=== PATIENT | female | born 1965 | race Caucasian/White ===

== ENCOUNTER 2017-03-29 07:19 | Day surgery (SDC) | payer OTHER ==
[2017-03-24 16:22] LABS: BASOPHILS 0.7 %; BASOPHILS ABSOLUTE 0.06 10/3/uL (0.0-0.16); EOSINOPHILS ABSOLUTE 0.18 10/3/uL (0.0-0.53); IMMATURE GRANULOCYTES 0.1 %; IMMATURE GRANULOCYTES ABSOLUTE 0.01 10/3/uL (0.0-0.11); LYMPHOCYTES 32.9 %; LYMPHOCYTES ABSOLUTE 2.99 10/3/uL (0.67-4.30); MEAN CORPUSCULAR HEMOGLOB 30.7 pg (26.0-34.0); MEAN CORPUSCULAR VOLUME 90.1 fL (80-100); MEAN PLATELET VOLUME 9.3 fL (9.2-13.0); MONOCYTES 4.4 %; NEUTROPHILS 59.9 %; NEUTROPHILS ABSOLUTE 5.44 10/3/uL (2.02-8.40); PLATELET COUNT 267 10/3/uL (150-400); RBC DISTRIBUTION WIDTH 13.5 % (12.0-16.0); WHITE BLOOD CELLS 9.1 10/3/uL (4.5-10.5)
[2017-03-24 16:24] LABS: HEMATOCRIT 43.8 % (36.0-48.0); HEMOGLOBIN 14.9 g/dL (12.0-16.0); MANUAL DIFF NO %; RED CELL COUNT 4.86 10/6/uL (4.0-5.6)
[2017-03-24 16:34] LABS: A/G RATIO 0.9 (0.7-1.9); ALBUMIN 3.6 G/DL (3.5-5.0); ALKALINE PHOSPHATASE 102 U/L (45-117); BUN (BLOOD UREA NITROGEN) 6 MG/DL (6-23); CALCIUM, SERUM 9.2 MG/DL (8.5-10.4); CHLORIDE, SERUM 112 MMOL/L (96-112); CO2 (CARBON DIOXIDE) 23 MMOL/L (24-34); CREATININE 0.94 MG/DL (0.55-1.02); GFR AFRICAN AMERICAN 81 ML/MIN (>=60); GFR NON AFRICAN AMERICAN 70 ML/MIN (>=60); GLUCOSE, SERUM 97 MG/DL (60-99); POTASSIUM, SERUM 3.9 MMOL/L (3.5-5.3); SGOT(AST) 17 U/L (5-40); SGPT(ALT) 24 U/L (5-65); SODIUM, SERUM 145 MMOL/L (135-148); TOTAL BILIRUBIN 0.3 MG/DL (0-1.2); TOTAL PROTEIN 7.6 G/DL (6.0-8.5)
--- NOTE | ~2017-03-29 | OP ---
[facility] Of [place] [id number] [place]. [address] NAME: ELDER BANKS : 65 STATUS : REG [facility]#: [id number] AGE: 51 ADM/REG DATE : 03/29/17 MR#: [id number] REPORT SERV DATE: 03/29/17 DICTATED BY: ZACKERY PATRICK DATE: 03/29/17 REPORT STATUS : Draft TRANSCRIBED BY: MODL DATE: 03/29/17 DATE OF PROCEDURE: 03/29/2017 PREOPERATIVE DIAGNOSIS: Transitional cell cancer of the bladder. POSTOPERATIVE DIAGNOSIS: Transitional cell cancer of the bladder. PROCEDURE: Cysto, cold cup biopsy, and fulguration of bladder lesions. ANESTHESIA: General inhalation. SURGEON: Zackery Patrick M.D. SPECIMENS: Bladder biopsies x3. ESTIMATED BLOOD LOSS: Nil. COMPLICATIONS: None. DRAINS: None. IMMEDIATE POSTOP: Satisfactory. DESCRIPTION OF PROCEDURE: The patient was brought in to the cysto suite, given inhalational anesthetic in the lithotomy position. Perineum and genitalia were prepped and draped in sterile fashion. Video cystourethroscopy was then performed using a #22 cystoscope and Foroblique lens. The bladder was carefully inspected. Both ureteral orifices were normal in appearance. Proximal and lateral to the right ureteral orifice were noted two small papillary appearing lesions. There were no other lesions noted within the bladder. These did not involve or encroached upon the right ureteral orifice. Each was removed using a cold cup biopsy forceps. The site was then thoroughly fulgurated with a Bugbee electrode. No visible tumor or mucosal abnormalities were noted at this point. At close of procedure, the bladder was drained. Cystoscope removed. The patient was awakened and sent to recovery in satisfactory condition. MS/MODL Zackery Patrick M.D. / [id number] CC: Zackery Patrick M.D. Record Of [place] [address] [place]. [address] NAME: ELDER BANKSETTE : 65 STATUS : REG [facility] [place]#: [id number] AGE: 51 ADM/REG DATE : 03/29/17 MR#: [id number] REPORT SERV DATE: 03/29/17 DICTATED BY: ZACKERY PATRICK DATE: 03/29/17 REPORT STATUS : Draft TRANSCRIBED BY: NURIS DATE: 03/29/17 Silvestre Sibley M.D.
[~2017-03-29 07:19] MED LIST: AMB5 PO; ASAB PO; QVAR40 MC1 INH; VENTOLIN HFA INH
== END 2017-03-29 13:06 | disposition home or self-care (01) ==
LOC: SDC 07:19
PROVIDERS: Urology
PROC: 0T5B8ZZ Destruction of Bladder, Via Natural or Artificial Opening Endoscopic (ICD-10-PCS; principal; 2017-03-29 08:45)
DX: C67.9 Malignant neoplasm of bladder, unspecified (principal); J45.909 Unspecified asthma, uncomplicated; F17.210 Nicotine dependence, cigarettes, uncomplicated; G89.29 Other chronic pain; J18.9 Pneumonia, unspecified organism; M54.9 Dorsalgia, unspecified; Z87.01 Personal history of pneumonia (recurrent)
CPT/HCPCS: 71020; 80053; 85025; 88305; 93005; A9270-GY; J2250; J2370; J2405; J2710; J3010